=== PATIENT | female | born 1965 | race Caucasian/White ===

== ENCOUNTER 2018-09-27 11:38 | Emergency (ER) | payer OTHER ==
[~2018-09-27] VITALS: Ht 172.7 cm; Wt 150.6 kg
[~2018-09-27 11:38] MED LIST: ACID REDUCER 1150 MG PO; ALBU90OI6 INH; AMOCLA875 PO; ARIP15 PO; AZIT250 PO; BASAGLAR K100 UNIT/1; BUDE6HFA INH; BUPR100 PO; BUPR150ER PO; BUSP10 PO; BYDUREON2 MG; CARB200 PO; CLON.5; CLON1 PO; CODGUAEL PO; CYCL10 PO; DICMIS50EC PO; DOCU100 PO; DULO60; DULO60 PO; ERGO50000 PO; FIBE4P; FLUSAL2505 IH; FURO20 PO; GABA600 PO; GLIP10 PO; GLUCHON; HYDACE5 PO; HYDCHL25 PO; HYDR1TAB94 PO; LAMO100 PO; LEVSOD50 PO; LISI5 PO; LORA.5 PO; LORA1 PO; Lamictal150 MG; METO50 PO; OXYACE5T PO; PRED20 PO; PREG150 PO; ROPI1 PO; RXCODGUASY PO; TRAZ100; [UNRECOGNIZED DRUG - REMARK]
== END 2018-09-27 12:22 | disposition home or self-care (01) ==
LOC: ER 11:38
DX: T81.30XA Disruption of wound, unspecified, initial encounter (principal); F31.9 Bipolar disorder, unspecified; J45.909 Unspecified asthma, uncomplicated; Z79.899 Other long term (current) drug therapy; Z79.4 Long term (current) use of insulin; Z88.8 Allergy status to other drugs, medicaments and biological substances; Z88.6 Allergy status to analgesic agent
CPT/HCPCS: 99282

== ENCOUNTER 2019-09-22 08:41 | Emergency (ER) | payer OTHER ==
[~2019-09-22] VITALS: Ht 172.7 cm; Wt 158.3 kg
[2019-09-22] MEDS ORDERED: BASAGLAR K100 UNIT/2 SC (09:09)
[2019-09-22] MEDS ORDERED: HYDR1TAB94 PO (11:20)
== END 2019-09-22 12:28 | disposition home or self-care (01) ==
LOC: ER 08:41
DX: S42.202A Unspecified fracture of upper end of left humerus, initial encounter for closed fracture (principal); F31.9 Bipolar disorder, unspecified; F41.0 Panic disorder [episodic paroxysmal anxiety]; J45.909 Unspecified asthma, uncomplicated; Z88.6 Allergy status to analgesic agent; Z88.8 Allergy status to other drugs, medicaments and biological substances; Z79.899 Other long term (current) drug therapy; W18.30XA Fall on same level, unspecified, initial encounter
CPT/HCPCS: 29125; 73030; 73070; 96372-59; 99283-25; J1170

== ENCOUNTER 2020-03-12 00:27 | Emergency (ER) | payer OTHER ==
[~2020-03-12] VITALS: Ht 172.7 cm; Wt 163.3 kg
[~2020-03-12 00:27] MED LIST changes: +BASAGLAR K100 UNIT/2 SC
== END 2020-03-12 03:03 | disposition left against medical advice (07) ==
LOC: ER 00:27
DX: Z53.21 Procedure and treatment not carried out due to patient leaving prior to being seen by health care provider (principal)